=== PATIENT | female | born 1995 | race African-American/Black ===

== ENCOUNTER 2016-06-13 11:02 | Emergency (ER) | payer SELFPAY ==
[~2016-06-13] VITALS: Ht 167.6 cm; Wt 73.9 kg
[2016-06-13 12:16] VITALS: BP 112/74
== END 2016-06-13 12:17 | disposition home or self-care (01) ==
LOC: ER 11:02
DX: L98.9 Disorder of the skin and subcutaneous tissue, unspecified (principal)
CPT/HCPCS: 99281; A4663